=== PATIENT | male | born 1930 | race Caucasian/White ===

== ENCOUNTER 2017-01-14 12:19 | Inpatient (IN) ==
[2017-01-14 13:20] LABS: Basophils # 0.1 10*3/uL (0.0-0.2); Basophils % 0.9 % (0.0-0.8); Eosinophils # 0.1 10*3/uL (0.0-0.87); Eosinophils % 0.4 % (0.00-10.9); Hematocrit 41.8 VOL% (42.0-52.0); Hemoglobin 13.4 GM/DL (14.0-18.0); Immature Granulocytes % 0.4 %; Immature Granulocytes Absolute 0.06 #; Lymphocytes % 6.8 % (21.2-54.2); Mean Corpuscular HGB Conc 32.1 GM/DL (32-36); Mean Corpuscular Hemoglobin 30 PG (27-34); Mean Corpuscular Volume 94.1 FL (87-102); Mean Platelet Volume 9.7 FL (9.6-12.0); Monocytes # 1.1 10*3/uL (0.11-0.8); Neutrophils # 12.7 10*3/uL (1.4-7.4); Neutrophils % 84.5 % (38.7-73.9); Red Blood Count 4.44 MC/CUMM (3.8-5.5); Red Cell Distribution Width 15.2 % (9.3-17.3)
--- NOTE | 2017-01-14 13:25 | XRay Report ---
Referring Physician: Raymundo Richter Exam: XR chest 1V portable Date: January 14, 2017 at 1:10 PM Reason: Altered mental status Comparison: None Findings: The cardiac silhouette is normal in size, but the thoracic aorta is tortuous. No focal consolidation, pneumothorax or pleural effusion is identified. However, the lungs are hyperexpanded, which can be seen in COPD. No acute osseous process is identified. Impression: No acute pulmonary process is identified. However, the lungs are hyperexpanded, which can be seen in COPD. PROCEDURE INTERPRETED AT [facility] DEPARTMENT OF RADIOLOGY Final Report Signed by: Dr. Margo Collado
[2017-01-14 13:31] LABS: Platelet Count 1340 T/CUMM (130-400)
[2017-01-14 13:38] LABS: INR 1.1; PT Patient Result 11.3 SECS
[2017-01-14 13:45] LABS: Ammonia < 10 UMOL/L (11-32)
[2017-01-14 13:46] LABS: Alanine Aminotransferase 12 U/L (16-61); Albumin 3.1 G/DL (3.4-5.0); Alkaline Phosphatase 109 U/L (45-117); Aspartate Amino Transferase 11 U/L (0-37); Blood Urea Nitrogen 24 MG/DL (7-18); Glucose 74 MG/DL (74-106); Magnesium 2.2 MG/DL (1.8-2.4); Osmolality,Calculated 285.1 MOS/KG (273-304); Potassium 4.5 MMOL/L (3.5-5.1); Sodium 142 MMOL/L (136-145); Thyroid Stimulating Hormone 0.814 uIU/ml (0.358-3.74); Total Protein 7.5 G/DL (6.4-8.3); Troponin I Only < 0.015 NG/ML (0.00-0.045)
[2017-01-14] MEDS ORDERED: SODIUM CHLORIDE 0.9% 1,000 ML IV STA (14:03)
[2017-01-14] MEDS ORDERED: VANCOMYCIN INJ 1,000 MG in SODIUM CHLORIDE 0.9% 250 ML IV STA (14:06)
[2017-01-14] MEDS ORDERED: methylPREDNISolone SOD SUC 125 MG/2 ML VIAL IV STA (14:13)
[2017-01-14] MEDS ORDERED: ALBUTEROL/IPRATROPIUM 3 ML NEB RESP TX STA (14:13)
[2017-01-14] MEDS ORDERED: methylPREDNISolone SOD SUC 125 MG/2 ML VIAL ONE (14:24)
--- NOTE | 2017-01-14 14:27 | Emergency Department Note ---
Harley Lynn Mantricia, am scribing for, and in the presence of, Raymundo Richter MD 14:03. Rober Lynn Charles R, MD, personally performed the services described in this documentation, ascribed by Reggie Souza in my presence, and it is both accurate and complete [id number] . Arrival - Arrival Chief Complaint: Extremity Problem Stated Complaint: Not eating-ulcer on leg draining ED Nursing Triage Note: Decreased PO intake and ulcers to bilat legs onset x years Mode of Arrival: Wheelchair Limitations: No Limitations Source: Significant other Time Seen by Provider: 01/14/17 13:30 - History of Present Illness HPI Narrative: Pt is an 86 y/o white male carried to ED by family with c/o ulcers on both lower extremities and decreased PO intake that onset years ago. Family states that pt was once taken to [facility] in [place], [place] for his ulcers and they gave him no medications and just told him to elevate his leg. The ulcers have worsened and pt is now very weak. Family reports that pt thinks he is dying. He has not been able to drink and eat because he has been experiencing severe diarrhea. Pt is currently on no medications; however, he is very ill. Pt currently lives by himself. Family denies vomiting. No other complaints were reported to ED. Onset (ago): year(s) Consistency: constant Severity: moderate Allergies/Adverse Reactions: Allergies Allergy/AdvReac Type Severity Reaction Status Date / Time No Known Allergies Allergy Unverified 01/14/17 12:30 Home Medications: Home Medications Medication Instructions Recorded Confirmed Type No Known Home Medications [No 01/14/17 01/14/17 History Known Home Medications] Review of System - Review of System 12 point system: reviewed and no additional remarkable complaints except as stated - Review of System Constitutional: Absent: chills, diaphoresis, fever Eyes: Absent: discharge, pain, redness Head/Ears/Nose/Throat: Absent: earache, epistaxis Respiratory: Absent: cough, respiratory distress, wheezing Cardiovascular: Absent: chest pain, palpitations Gastrointestinal: Present: diarrhea. Absent: abdominal pain, nausea, vomiting Genitourinary male: Absent: urgency, dysuria Musculoskeletal: Present: other (ulcer on LE bilat). Absent: arm pain, back pain, leg pain, neck pain Skin: Absent: rash, lesions Neurological: Absent: headache, weakness Medical,Surgical,& Family Hx - Medical History Neurology: No history of: Multiple Sclerosis - Social History Smoking Status: Never smoker Frequency of Alcohol Use: None Type of Drug Use: None Exam Vital Signs: Vital Signs Temperature 98.3 F 01/14/17 13:05 Pulse Rate 97 H 01/14/17 15:15 Respiratory Rate 18 01/14/17 13:30 Blood Pressure 132/68 01/14/17 15:15 O2 Sat by Pulse Oximetry 99 01/14/17 14:30 - General General appearance: alert, in no apparent distress, other (weak; malnourished) - Head Head exam: Present: atraumatic, normocephalic, normal inspection - Eye Eye exam: Present: normal appearance, PERRL, EOMI, other (sunken orbits) - ENT ENT exam: Present: normal exam, normal oropharynx, mucous membranes moist, TM's normal bilaterally, normal external ear exam - Neck Neck exam: Present: normal inspection, full ROM, trachea midline. Absent: tenderness - Chest Chest inspection: Present: normal inspection, symmetric chest wall rise. Absent : tenderness - Respiratory Respiratory exam: Present: normal lung sounds bilaterally - Cardiovascular Cardiovascular exam: Present: regular rate, normal rhythm, normal heart sounds - Abdominal Exam Abdominal exam: Present: soft, normal bowel sounds, hernia (reproducible right) . Absent: distention, tenderness, guarding, rebound - Extremities Exam Extremities exam: Present: normal capillary refill, other (jm stasis ulcer bilat LE; +1 LE edema). Absent: tenderness - Back Exam Back exam: Present: normal inspection, full ROM. Absent: tenderness - Neurological Exam Neurological exam: Present: alert, oriented X3, CN II-XII intact, reflexes normal - Psychiatric Psychiatric exam: Present: normal affect, normal mood - Skin Skin exam: Present: warm, dry, intact, other (poor skin turgor) Course - Consultations Time: 14:23 Results - Labs CBC & BMP: 01/14/17 12:48 01/14/17 12:48 Lab Results: I have reviewed the patients labs Labs: Laboratory Tests 01/14/17 01/14/17 12:48 12:48 WBC 15.0 H Hgb 13.4 L Hct 41.8 L Plt Count 1340 H* Neut % (Auto) 84.5 H Lymph % (Auto) 6.8 L Baso % (Auto) 0.9 H Neut # (Auto) 12.7 H Lymph # (Auto) 1.0 L [place] # (Auto) 1.1 H Anion Gap 15.5 H BUN 24 H BUN/Creatinine Ratio 30.00 H ALT 12 L Ammonia < 10 L Albumin 3.1 L Globulin 4.4 H Albumin/Globulin Ratio 0.7 L - Diagnostic Findings Procedure: Chest x-ray: report reviewed by me (No acute pulmonary process identified. However, the lungs are hyperexpanded, which can be seen in COPD. ) Disposition Clinical Impression: Leukocytosis, Lower extremity edema, Lower extremity edema, Debility, Anorexia , Thrombocytosis, Failure to thrive, Cellulitis of lower extremity, Venous stasis ulcer, Weight loss, Unsteady gait, Malnutrition, COPD (chronic obstructive pulmonary disease) Case discussed with: patient, patient's family Disposition: Still a Patient Condition: Stable Time of Disposition: 14:26
[2017-01-14] MEDS ORDERED: VANCOMYCIN 1,000 MG VIAL ONE (14:28)
[2017-01-14 14:34] LABS: Sedimentation Rate-Westergren 20 MM/HR (0-20)
--- NOTE | 2017-01-14 14:50 | Ultrasound Report ---
Referring physician: Raymundo Richter Exam: Bilateral lower extremity venous ultrasound Date: January 14, 2017 Comparison: None Reason: Lower extremity swelling Technique: Duplex scan of the bilateral lower extremity veins was performed using B-Mode/grayscale imaging and Doppler spectral analysis and color flow. Ultrasound images were captured and stored. Findings: There is no evidence of thrombus within the left or right common femoral veins, saphenous veins, superficial femoral veins or popliteal veins. Normal compression and augmentation are present throughout. Normal color flow and spectral analysis are observed. Impression: No evidence of deep venous thrombosis within either lower extremity. PROCEDURE INTERPRETED AT [facility] DEPARTMENT OF RADIOLOGY Final Report Signed by: Dr. Margo Collado
[2017-01-14] MEDS ORDERED: MORPHINE 2 MG/1 ML SYRINGE IV STA (14:59)
[2017-01-14] MEDS ORDERED: ONDANSETRON 4 MG/2 ML VIAL ONE (15:00)
[2017-01-14] MEDS ORDERED: ONDANSETRON 4 MG/2 ML VIAL IV STA (15:00)
[2017-01-14] MEDS ORDERED: MORPHINE 2 MG/1 ML SYRINGE ONE (15:01)
[2017-01-14] MEDS ORDERED: ACETAMINOPHEN 325 MG TABLET PO PRN (16:01)
--- NOTE | 2017-01-14 16:16 | Hospitalist History & Physical ---
<Ramin Woodson - Last Filed: 01/14/17 17:21> History of Present Illness History of present illness: Mr. Reeder is a 86 year old male with an unclear past medical history who presents to the ED for further evaluation of debilitation and cellulitis of the lower extremities. On exam, the patient continuously states that he is going to or he wants to and was unwilling to answer many of the questions presented to him. However, the patient's ex- is at the bedside and assisted with most of the history. The patient apparently lives by himself and has not been eating for the last 3-4 weeks. Patient states that food and the boost that he drinks his passes right through him so he does not want to eat. His states that she brings him food 3-4 times a day, but he never eats. Patient does not admit to any pain, however the ex- states that he has chronic low back pain which compounds his desire to . Patient does not regularly see a doctor and does not currently take any medications. Lab results on admission reveal WBC 15 platelet count 1340. After discussion with Dr. Richter and Dr. Padgett, it is been agreed that the patient will be admitted to hospital medicine service for further evaluation and treatment. Home Medications Medication Instructions Recorded Confirmed Type Aspirin 1 tablet PO DAILY 01/14/17 01/14/17 History Allergies Allergy/AdvReac Type Severity Reaction Status Date / Time No Known Allergies Allergy Unverified 01/14/17 12:30 - EENT Eyes: Absent: blurry vision, loss of vision Exam - Constitutional Vitals: Period Temp Pulse Resp BP Sys/Fitzpatrick Pulse Ox Last 24 Hr 98.3 F-98.3 F 78-99 13-20 131-165/68-91 96-100 - Back Exam Back exam: Present: normal inspection. Absent: CVA tenderness (L), CVA tenderness (R) - Skin Skin exam: Present: other Results - Labs CBC & BMP: 01/14/17 12:48 01/14/17 12:48 <Micheline Padgett - Last Filed: 01/14/17 20:23> Assessment and Plan (1) Cellulitis of lower extremity Status: Acute Assessment and plan: consult dr Jung for wound debridement, vancomycin IV Current Visit: Yes (2) Thrombocythemia Status: Acute Assessment and plan: consult Dr Larson Current Visit: Yes (3) Venous stasis ulcer Status: Acute Assessment and plan: Consult Dr. Jung look clean Current Visit: Yes (4) Weight loss Status: Acute Assessment and plan: ns and cardiac diet Current Visit: Yes (5) Malnutrition Status: Acute Current Visit: Yes (6) Chronic obstructive pulmonary disease Status: Acute Assessment and plan: chronic and stable Current Visit: Yes (7) Urinary frequency Status: Acute Assessment and plan: ua Current Visit: Yes History of Present Illness Chief complaint: weakness History of present illness: Mr. Reeder is a 86 year old male carried to ED by ex- who I cared for her family in the past. She reports he is not eating because his food runs through him. I has bilateral LE deep ulcers with surrounding cellulitis. Patient told me he wants to and asked me to put him to sleep. I told him I cannot do that. I have notified Dr. Jung as he may need debridement. He also has a right reducible hernia. Patient denies nausea and vomiting but reports everything runs through but denies diarrhea. Urinating alot Medical,Surgical,& Family Hx - Medical History Neurology: History of: Parkinson's Disease No history of: Multiple Sclerosis Other: History of: Miscellaneous Medical Problems (chronic LE ulcers ) - Surgical History Additional Surgical History: none - Family History Family History: Reports;: Family Diabetes - Social History Smoking Status: Never smoker Frequency of Alcohol Use: None Type of Drug Use: None Marital Status: Single Lives With:: Alone Functional capacity: independent ambulation - Constitutional Constitutional: Present: weakness, weight loss. Absent: fever(s), headache(s) - Cardiovascular Cardiovascular: Present: lightheadedness - Respiratory Respiratory: Absent: dyspnea, dyspnea on exertion - Gastrointestinal Gastrointestinal: Absent: nausea, vomiting - Genitourinary Genitourinary: Present: difficulty urinating, urinary frequency. Absent: dysuria - Neurological Neurological: Present: dizziness, frequent falls - Psychiatric Psychiatric: Present: depression. Absent: anxiety - Endocrine Endocrine: Present: fatigue. Absent: heat intolerance - Hematologic/Lymphatic Hematologic/Lymphatic: Present: easy bleeding, easy bruising Exam - Constitutional Vitals: Period Temp Pulse Resp BP Sys/Fitzpatrick Pulse Ox Last 24 Hr 98.3 F-98.3 F 78-97 18-20 132-165/68-91 97-100 General appearance: no acute distress, under weight - Head Head exam: Present: normal inspection, normocephalic - Eye Eye exam: Present: EOMI. Absent: scleral icterus Pupils: Present: MARTINA, normal accommodation - ENT ENT exam: Present: normal exam, normal external ear exam - Neck Neck exam: Absent: lymphadenopathy, thyromegaly - Respiratory Respiratory exam: Present: clear to auscultation bilaterally. Absent: rales, wheezes - Cardiovascular Cardiovascular exam: Present: regular rate and rhythm. Absent: systolic murmur - GI/Abdominal GI/Abdominal exam: Present: normal bowel sounds, soft, other (right inguinal hernia ). Absent: tenderness - Extremities Exam Extremities exam: Present: normal inspection, normal capillary refill - Neurological Exam Neurological exam: Present: alert, oriented X3, CN II-XII intact, reflexes normal. Absent: motor sensory deficit - Psychiatric Psychiatric exam: Present: depressed, flat affect - Skin Skin exam: Present: dry, erythema, other (wounds bilateral LE wound ) Results - Labs CBC & BMP: 01/14/17 12:48 01/14/17 12:48 Lab Results: I have reviewed the past 24 hour labs - Diagnostic Findings Procedure: Chest x-ray: report reviewed by me (copd ), Ultrasound: report reviewed by me (no dvt )
[2017-01-14 16:34] LABS: Apearance,Urine CLEAR (Clear); Bacteria,Urine Occasional /HPF (Few); Bilirubin,Urine Negative (Negative); Blood, Urine Negative (Negative); Glucose,Urine (UA) Negative (Negative); Ketones,Urine 80 mg/dL (Negative); Mucus,Urine Occasional /LPF (Occasional); Nitrite,Urine Negative (Negative); Protein,Urine Negative; RBC,Urine <1 /HPF (0-4); Squamous Epithelial Cell,Urine Occasional /HPF (0-10); Urine Color Yellow (Yellow); Urine Specific Gravity 1.014 (1.001-1.035); Urine Urobilinogen < 2.0 EU/DL (0.2-1.0); WBC,Urine 3 /HPF (0-6)
[2017-01-14 17:18] LABS: Free T4 (Free Thyroxine) 1.24 NG/DL (0.76-1.46); Thyroid Stimulating Hormone 0.806 uIU/ml (0.358-3.74)
--- NOTE | 2017-01-14 17:58 | General Surgery Consult Note ---
Assessment and Plan (1) Venous stasis ulcer Status: Acute Assessment and plan: The patient will be treated with local wound care, elevation of the legs, and antibiotics. He may need debridement of his ulcers but I would like to try local wound care for the first few days. He will need to have a ultrasound done with reflux studies on the veins at some point in time. Current Visit: Yes (2) Inguinal hernia Status: Acute Assessment and plan: This appears asymptomatic so we will just watch this for now. Current Visit: Yes History of Present Illness Chief complaint: Bilateral lower extremity pain History of present illness: Mr. Reeder is a 86 year old male who presents to the ER for redness and pain in bilateral lower extremities. He denies any history of blood clots or venous insufficiency but does state that he has had skin changes in his ankles for many years consistent with venous stasis disease. The patient presented to the ER today also complaining of right groin pain and a bulge and I was asked to see him for his inguinal hernia as well. No fevers. He has a severe thrombocytosis. White blood cell count is elevated at 15 to. He is afebrile. Home Medications Medication Instructions Recorded Confirmed Type No Known Home Medications [No 01/14/17 01/14/17 History Known Home Medications] Allergies Allergy/AdvReac Type Severity Reaction Status Date / Time No Known Allergies Allergy Unverified 01/14/17 12:30 Medical,Surgical,& Family Hx - Medical History Neurology: History of: Parkinson's Disease No history of: Multiple Sclerosis Other: History of: Miscellaneous Medical Problems (chronic LE ulcers ) - Family History Family History: Reports;: Family Diabetes - Social History Smoking Status: Never smoker Frequency of Alcohol Use: None Type of Drug Use: None - Constitutional Constitutional: Present: as per HPI - EENT Nose, mouth and throat: Present: as per HPI - Cardiovascular Cardiovascular: Present: as per HPI - Respiratory Respiratory: Present: as per HPI - Gastrointestinal Gastrointestinal: Present: as per HPI - Genitourinary Genitourinary: Present: as per HPI - Musculoskeletal Musculoskeletal: Present: as per HPI - Neurological Neurological: Present: as per HPI - Endocrine Endocrine: Present: as per HPI Hematologic/Lymphatic: Present: as per HPI Exam - Constitutional Vitals: Period Temp Pulse Resp BP Sys/Fitzpatrick Pulse Ox Last 24 Hr 91-99 18-20 131-139/68-75 96-96 General appearance: normal weight, no acute distress - Head Head exam: Present: normal inspection, normocephalic - Eye Eye exam: Present: EOMI Pupils: Present: MARTINA - ENT ENT exam: Present: normal exam Mouth exam: Present: normal external inspection, normal voice - Neck Neck exam: Present: normal inspection, trachea midline - Respiratory Respiratory exam: Present: clear to auscultation bilaterally. Absent: accessory muscle use, chest wall tenderness - Cardiovascular Cardiovascular exam: Present: RRR. Absent: systolic murmur, tachycardia - GI/Abdominal GI/Abdominal exam: Present: soft, other (There is a reducible right inguinal hernia present. There are no skin changes.). Absent: tenderness, rebound - Extremities Exam Extremities exam: Present: normal inspection - Back Exam Back exam: Present: normal inspection - Neurological Exam Neurological exam: Present: alert, oriented X3 Speech: Present: normal - Skin Skin exam: Present: normal color, warm Results - Labs CBC & BMP: 01/14/17 12:48 01/14/17 12:48 - Diagnostic Findings Procedure: Ultrasound: image reviewed by me, report reviewed by me (No DVTs)
[2017-01-14] MEDS: SODIUM CHLORIDE 0.9% 1,000 ML IV SCH (21:40)
[2017-01-14] MEDS: ENOXAPARIN 40 MG/0.4 ML SYRINGE SUBCUT SCH (21:45)
[2017-01-14] MEDS: PANTOPRAZOLE 40 MG TABLET PO SCH (21:45)
[2017-01-15 06:35] LABS: Calcium 7.6 MG/DL (8.5-10.1); Osmolality,Calculated 289.8 MOS/KG (273-304)
[2017-01-15 06:47] LABS: Basophils % 0.2 % (0.0-0.8); Hematocrit 33.3 VOL% (42.0-52.0); Hemoglobin 10.8 GM/DL (14.0-18.0); Immature Granulocytes % 1.5 %; Immature Granulocytes Absolute 0.17 #; Lymphocytes # 0.8 10*3/uL (1.4-4.0); Lymphocytes % 6.7 % (21.2-54.2); Mean Corpuscular HGB Conc 32.4 GM/DL (32-36); Mean Corpuscular Hemoglobin 30 PG (27-34); Mean Corpuscular Volume 93.8 FL (87-102); Mean Platelet Volume 9.8 FL (9.6-12.0); Monocytes # 0.3 10*3/uL (0.11-0.8); Monocytes % 2.7 % (1.7-12.7); Neutrophils # 10.1 10*3/uL (1.4-7.4); Neutrophils % 88.9 % (38.7-73.9); Red Blood Count 3.55 MC/CUMM (3.8-5.5); Red Cell Distribution Width 15.1 % (9.3-17.3); White Blood Count 11.4 T/CUMM (4-12)
[2017-01-15 07:22] LABS: Hypochromasia 2+; Microcytosis 1+; Platelet Count 1208 T/CUMM (130-400); Platelet Estimate Increased
--- NOTE | 2017-01-15 08:51 | EKG Report ---
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
[2017-01-15] MEDS ORDERED: LACTATED RINGERS 1,000 ML IV SCH (09:00)
--- NOTE | 2017-01-15 11:27 | Physician Query Form ---
CLICK EDIT DOCUMENT TO SELECT QUERY ANSWER --> OK --> SIGN Karie Lutz RN, CCDS Certified Clinical Manager [employer] W) [phone] (f) [phone] [email or web address] PROVIDERS: Make your selection(s) from the choices in EACH section by typing an "x" and enter comments in the comment section. Please use your independent medical judgment in providing your response. This request does not imply that any particular answer is desired or expected. CLINICAL INDICATORS: (Providers should not edit this section) The medical record indicates that the patient was admitted with bilateral venous stasis ulcers of lower legs: Based on the above, could you clarify the appropriate diagnosis, if significant , that supports the above abnormalities and additional evaluation, monitoring, and/or treatment rendered: Left leg ulcer depth: ( ) Fat Layer exposed ( ) Necrosis of bone ( ) Necrosis of muscle ( ) Skin breakdown only ( ) Other Right leg ulcer depth: ( ) Fat Layer exposed ( ) Necrosis of bone ( ) Necrosis of muscle ( ) Skin breakdown only ( ) Other ( ) Other, please specify: (x) Clinically unable to determine COMMENTS: PLEASE ALSO DOCUMENT RESPONSE IN PROGRESS NOTES AND/OR DISCHARGE SUMMARY Use of terms such as suspected, likely, or probable (associated with a specific diagnosis that is being evaluated, monitored, or treated as if it exists) are acceptable and can be restated in the discharge summary if not ruled out. MTDD
[2017-01-15 12:10] LABS: Apearance,Urine Slightly Hazy (Clear); Bacteria,Urine Occasional /HPF (Few); Bilirubin,Urine Negative (Negative); Blood, Urine Large mg/dL (Negative); Glucose,Urine (UA) Negative (Negative); Hyaline Casts,Urine 1 /LPF (0-3); Ketones,Urine 20 mg/dL (Negative); Mucus,Urine Occasional /LPF (Occasional); Nitrite,Urine Negative (Negative); Protein,Urine Negative; RBC,Urine 246 /HPF (0-4); Squamous Epithelial Cell,Urine Occasional /HPF (0-10); Urine Color Yellow (Yellow); Urine Specific Gravity 1.016 (1.001-1.035); Urine Urobilinogen < 2.0 EU/DL (0.2-1.0); WBC,Urine 5 /HPF (0-6)
[2017-01-15] MEDS ORDERED: BUPIVACAINE MPF 0.25% /EPI 30 ML VIAL ONE (12:15)
--- NOTE | 2017-01-15 12:15 | General Surgery Progress Note ---
Assessment and Plan (1) Venous stasis ulcer Status: Acute Assessment and plan: We will plan for debridement in the OR today and dressing placement. This was discussed with the family and agreed upon. Current Visit: Yes (2) Inguinal hernia Status: Acute Assessment and plan: This appears asymptomatic so we will just watch this for now. Current Visit: Yes Subjective Patient reports: Present: no new complaints, still having pain, pain is less, afebrile Exam - Constitutional Vitals: Period Temp Pulse Resp BP Sys/Fitzpatrick Pulse Ox Last 24 Hr 97.8 F-98.3 F 78-99 13-20 126-165/68-91 95-100 General appearance: no acute distress, under weight - Head Head exam: Present: normal inspection, normocephalic - Eye Eye exam: Present: EOMI Pupils: Present: MARTINA - ENT ENT exam: Present: normal exam Mouth exam: Present: normal external inspection, normal voice - Neck Neck exam: Present: normal inspection, trachea midline - Respiratory Respiratory exam: Present: clear to auscultation bilaterally. Absent: accessory muscle use, chest wall tenderness - Cardiovascular Cardiovascular exam: Present: RRR. Absent: systolic murmur, tachycardia - GI/Abdominal GI/Abdominal exam: Present: soft, other (Right inguinal hernia is nontender and reduced). Absent: tenderness, rebound - Extremities Exam Extremities exam: Present: other (Venous stasis ulcers worse on the right leg. There is surrounding cellulitis. There is some sloughing necrotic tissue on the ulcers.) - Back Exam Back exam: Present: normal inspection - Neurological Exam Neurological exam: Present: alert, oriented X3 Speech: Present: normal - Skin Skin exam: Present: normal color, warm Results - Labs CBC & BMP: 01/15/17 04:00 01/14/17 12:48
--- NOTE | 2017-01-15 12:16 | Hematology Consult ---
Assessment and Plan (1) Thrombocythemia Status: Acute Assessment and plan: I think this is reactive. I will most likely improve if his chronic ulcerations heal. I encouraged him to take daily aspirin indefinitely. There is nothing further to offer from hematology standpoint. Current Visit: Yes (2) Debility Status: Acute Current Visit: Yes (3) Loss of appetite Status: Acute Current Visit: Yes (4) Failure to thrive Status: Acute Current Visit: Yes (5) Cellulitis of lower extremity Status: Acute Current Visit: Yes (6) Venous stasis ulcer Status: Acute Current Visit: Yes (7) Malnutrition Status: Acute Current Visit: Yes History of Present Illness - Consult Narrative History of present illness: Mr. Reeder is a 86 year old male with chronic lower extremity ulcers who was admitted yesterday for evaluation and treatment of these. He also appears to have severe failure to thrive and does not get out of bed much based on history from family member at bedside. I was consulted to evaluate his elevated platelet count. I suspect this is most likely reactive in nature given his lower extremity ulcerations. He may have some underlying primary thrombocytosis but I do not see him being a candidate or have any benefit from aggressive cytoreductive therapy with Hydrea. He already takes a baby aspirin every day at home which is all I would recommend anyway. There is nothing further to offer from a hematology standpoint. I do not think this is a malignant process causing his thrombocytosis. He has no history of DVT, CVA, myocardial infarction, or other thrombosis. CC: Abdi Quarles MD - Home Medications and Allergies Home Medications: Home Medications Medication Instructions Recorded Confirmed Type Aspirin 1 tablet PO DAILY 01/14/17 01/14/17 History Allergies/Adverse Reactions: Allergies Allergy/AdvReac Type Severity Reaction Status Date / Time No Known Allergies Allergy Unverified 01/14/17 12:30 Medical,Surgical,& Family Hx - Medical History Psychological: History of: Depression Neurology: History of: Parkinson's Disease No history of: Multiple Sclerosis Other: History of: Miscellaneous Medical Problems (chronic LE ulcers ) - Family History Family History: Reports;: Family Diabetes - Social History Smoking Status: Never smoker Frequency of Alcohol Use: None Type of Drug Use: None 12 point system: reviewed and no additional remarkable complaints except as stated - Constitutional Constitutional: Present: fatigue Exam - Constitutional Vitals: Period Temp Pulse Resp BP Sys/Fitzpatrick Pulse Ox Last 24 Hr 97.8 F-98.6 F 75-99 13-20 121-165/67-91 90-100 General appearance: no acute distress, cachectic - Head Head Exam: Present: normocephalic, atraumatic - Eye Eye Exam: Present: EOMI Pupils: Present: PERRL - ENT ENT exam: Present: normal exam, normal oropharynx - Neck Neck exam: Absent: lymphadenopathy, thyromegaly - Respiratory Respiratory exam: Present: CTAB. Absent: wheezes - Cardiovascular Cardiovascular exam: Present: RRR. Absent: JVD, systolic murmur - GI/Abdominal GI/Abdominal exam: Present: soft. Absent: ascites, distended, mass - Neurological Exam Neurological exam: Present: alert, oriented X3 - Psychiatric Psychiatric exam: Present: normal affect, normal mood - Skin Skin exam: Present: warm, dry Results - Labs CBC & BMP: 01/15/17 04:00 01/15/17 04:00 Lab Results: I have reviewed the past 24 hour labs
[2017-01-15] MEDS ORDERED: LIDOCAINE 2% 5 ML VIAL ONE (12:22)
[2017-01-15] MEDS ORDERED: ONDANSETRON 4 MG/2 ML VIAL ONE ×2 (12:22→13:22)
[2017-01-15] MEDS ORDERED: PROPOFOL 200 MG/20 ML VIAL IV ONE (12:22)
[2017-01-15] MEDS ORDERED: HYDROmorphone 2 MG/1 ML VIAL ONE (13:22)
[2017-01-15] MEDS ORDERED: ONDANSETRON 4 MG/2 ML VIAL IV PRN (13:23)
[2017-01-15] MEDS ORDERED: MIDAZOLAM 2 MG/2 ML VIAL ONE (13:24)
[2017-01-15] MEDS ORDERED: fentaNYL 100 MCG/2 ML VIAL ONE (13:24)
[2017-01-15] MEDS: HYDROmorphone 2 MG/1 ML VIAL IV PRN ×2 (13:25→13:30)
--- NOTE | 2017-01-15 14:23 | Anesthesia Post-Op ---
Anesthesia Post OP - Post Ansesthetic Evaluation Patient seen in post op: Yes Resp: within normal limits CV: within normal limits Mental: within normal limits Temp: within normal limits [id number]-It-[id number]: within normal limits Nausea and Vomiting: within normal limits Pain: within normal limits
[2017-01-15] MEDS ORDERED: VANCOMYCIN INJ 1,000 MG in SODIUM CHLORIDE 0.9% 250 ML IV SCH (14:30)
--- NOTE | 2017-01-15 15:09 | Hospitalist Progress Note ---
Assessment and Plan (1) Chronic diarrhea Status: Acute Assessment and plan: From the story that is given to this is mostly associated with eating. Patient definitely has more absorption. I am concerned about possibility of celiac sprue. Patient will have drawn IgA levels as well as tissue transglutaminase antibodies. These are suggestive of celiac sprue patient should have consulted to gastroenterology for upper GI scope small bowel biopsy to evaluate for this disease. I believe if this is the reason for his manic diarrhea avoidance of gluten will help him immensely. Current Visit: Yes (2) Weight loss, abnormal Status: Acute Assessment and plan: As above Current Visit: Yes (3) Onychomycosis Status: Acute Assessment and plan: Try to get him podiatry services but there is none in the hospital. I have talked to his daughter that he will need to see a base manager as an outpatient. Follow has been going on for a long time. Current Visit: Yes (4) Hypertrophic toenail Status: Acute Assessment and plan: As above Current Visit: Yes (5) Leukocytosis Status: Acute Assessment and plan: This is complicating cellulitis of the lower extremities. Patient is going for surgical debridement of these wounds. Continue vancomycin and levofloxacin. Vancomycin should be increased to 1 g every 12 hours and we will give levofloxacin 750 mg IV every 24 hours. Will order pharmacy for consultation on pharmacokinetics of vancomycin. Current Visit: Yes (6) Thrombocythemia Status: Acute Assessment and plan: This could be secondary to chronic infections in the leg and also patient's general condition. Current Visit: Yes (7) Cellulitis of lower extremity Status: Acute Assessment and plan: Patient is going to have debridement of lower extremities ulcers. Evaluate for possibility of osteomyelitis. Will continue antibiotics as ordered Current Visit: Yes Hospitalist: Subjective Interval history: Patient has been seen interviewed and examined and chart has been. gentleman was admitted yesterday with significant debility and failure to thrive at home. Patient has bilateral leg wounds is greatly hypertrophied toenails. I am informed by his daughter at the bedside that he does not have any primary care physician. Done [employer] support system he does have at home. Reported also been having diarrhea by stating that the "food that he eats and the boost that he drinks" just passes through him." He has severe protein calorie deficiency wonder about possibility of malabsorption with his gentleman. Celiac sprue comes to my too. I will order IgA titer as well as anti-tissue transglutaminase levels. If these are suggestive, this gentleman should be referred to GI for upper endoscopy with small bowel biopsy to evaluate for celiac disease. Diarrhea has been going on for a long time he has lost a lot of weight and they seem to be living alone with very little help from the border hygiene I notice on him. He has no primary care physician on this concern of celiac disease may not have been looked at closely. That is the case he will have to avoid gluten diet Exam - Constitutional Vitals: Period Temp Pulse Resp BP Sys/Fitzpatrick Pulse Ox Last 24 Hr 97.8 F-98.6 F 16-99 12-20 121-174/62-89 90-100 General appearance: under weight - Head Head exam: Present: normocephalic, atraumatic - Eye Eye exam: Present: EOMI Pupils: Present: MARTINA - ENT ENT exam: Present: normal exam - Neck Neck exam: Present: normal inspection, other (Midline trachea no thyromegaly no lymphadenopathy) - Respiratory Respiratory exam: Present: clear to auscultation bilaterally - Cardiovascular Cardiovascular exam: Present: regular rate and rhythm - GI/Abdominal GI/Abdominal exam: Present: normal bowel sounds - Extremities Exam Extremities exam: Present: full ROM, other (Generalized weakness with significant muscle wasting hypertrophy of toenail with onychomycosis) - Neurological Exam Neurological exam: Present: alert, oriented X3, CN II-XII intact - Psychiatric Psychiatric exam: Present: normal affect, normal mood - Skin Skin exam: Present: normal color, warm, dry Results - Labs CBC & BMP: 01/15/17 04:00 01/15/17 04:00 Lab Results: I have reviewed the past 24 hour labs
--- NOTE | 2017-01-15 15:20 | Case Mgmt Physician Query Form ---
TB Signs and Symptoms Screening ([place]) INSTRUCTIONS: To be completed annually on residents/staff with a significant Tuberculin Skin Test (TST) upon admission/hire or a prior significant TST. To be completed on all staff at hire. Please respond to each listed symptom with an (X) in either the "YES" or "NO" box. Do you currently have any of the following symptoms: YES NO ( ) (x ) A cough If yes, is it: ( ) Productive ( ) Non- productive ( ) ( x) Hemoptysis (spitting up blood) ( ) ( x) Chest pains ( x) ( ) Weight Loss ( ) (x ) Fever ( ) (x ) Night Sweats ( x) ( ) Weakness ( ) (x ) Loss of Appetite ( ) (x ) Difficulty Breathing If you answered YES" to any of the above questions, how long have symptoms been present? Comments: Chronic associated with diarrhea after eating food. I have initiated worked up for celiac disease. Patient is depressed due to chronic illness If you have any questions, please contact me. Thank you, Rehana ELAM P: [phone] F: [phone] E: [email or web address]
[2017-01-15] MEDS ORDERED: TUBERCULIN SKIN TEST 0.1 ML SYRINGE INTRADERM ONE (15:30)
[2017-01-15] MEDS: SODIUM CHLORIDE 0.9% 1,000 ML IV SCH ×2 (15:45→20:57)
[2017-01-15] MEDS: PANTOPRAZOLE 40 MG TABLET PO SCH (15:45)
[2017-01-15] MEDS: LEVOFLOXACIN INJ 750 MG in PREMIX 1 EACH IV SCH (15:46)
[2017-01-15] MEDS: ENOXAPARIN 40 MG/0.4 ML SYRINGE SUBCUT SCH (16:23)
--- NOTE | 2017-01-15 16:53 | Operative Note ---
Date of procedure: 01/15/17 Pre-op diagnosis: Bilateral lower extremity venous stasis ulcers Post-op diagnosis: same Procedure: Preoperative diagnosis Bilateral lower extremity venous stasis ulcers Postoperative diagnosis Same Procedures performed 1. Excisional debridement of right lower extremity medial malleolus venous stasis ulcer measuring 30 cm skin and subcutaneous tissue 2. Excisional debridement of right lower extremity lateral malleolus venous stasis ulcer measuring 6 cm with skin and subcutaneous tissue 3. Excisional debridement of left lower extremity lateral malleolus venous stasis ulcer measuring 6 cm with skin and subcutaneous tissue debrided Findings All 3 debridements were performed on skin and subcutaneous tissue and a curette was used to scrape off necrotic tissue back to healthy bleeding tissue. Nonadhesive Vaseline gauze was used and covered with a compressive dressing to assist with venous drainage of the legs. Complications None apparent Specimen None Anesthesia General LMA Blood loss Minimal Indications Bilateral lower extremity venous stasis ulcer Description of procedure The patient was taken to the operating room and transferred to the operating table in supine position. Pressure points were padded and general anesthesia was administered with LMA. Bilateral lower extremities were prepped with Betadine and draped sterilely. Timeout was called. Excisional debridement was performed first on the right lower extremity medial malleolus venous stasis ulcer which measured 30 cm. Skin and subcutaneous tissue were debrided with a curette back to healthy bleeding tissue. Next, the right lower extremity lateral malleolus venous stasis ulcer was debrided and 6 cm of necrotic skin and subcutaneous tissue was debrided. Lastly, the left lower extremity lateral malleolus venous stasis ulcer was debrided and 6 cm necrotic skin and subcu tissue was debrided back to healthy bleeding tissue. Wounds were irrigated and dressed with a Vaseline gauze and cast padding and Coban compressive dressing. The patient was awakened from anesthesia and transferred to recovery. Postoperative plan Continue wound care and antibiotics Anesthesia: SIRISHA Surgeon / Physician: Aldair Jung Estimated blood loss: minimal Specimens: none sent Condition: stable Disposition: PACU Results - Labs CBC & BMP: 01/15/17 04:00 01/15/17 04:00 Discharge Plan - Discharge Medications No Action Aspirin 1 tablet PO DAILY - Follow Up or Referral - Forms/Instructions
[2017-01-15] MEDS: VANCOMYCIN INJ 1,000 MG in SODIUM CHLORIDE 0.9% 250 ML IV SCH (22:14)
[2017-01-16] MEDS: SODIUM CHLORIDE 0.9% 1,000 ML IV SCH ×3 (00:47→16:08)
[2017-01-16 03:53] LABS: Basophils % 0.3 % (0.0-0.8); Eosinophils # 0.1 10*3/uL (0.0-0.87); Eosinophils % 0.7 % (0.00-10.9); Hematocrit 30.6 VOL% (42.0-52.0); Hemoglobin 9.9 GM/DL (14.0-18.0); Immature Granulocytes % 0.4 %; Immature Granulocytes Absolute 0.05 #; Lymphocytes % 8.2 % (21.2-54.2); Mean Corpuscular HGB Conc 32.4 GM/DL (32-36); Mean Corpuscular Hemoglobin 30 PG (27-34); Mean Corpuscular Volume 92.7 FL (87-102); Mean Platelet Volume 9.9 FL (9.6-12.0); Monocytes # 1.3 10*3/uL (0.11-0.8); Monocytes % 10.3 % (1.7-12.7); Neutrophils # 9.9 10*3/uL (1.4-7.4); Neutrophils % 80.1 % (38.7-73.9); Platelet Count 970 T/CUMM (130-400); Red Cell Distribution Width 15.3 % (9.3-17.3); White Blood Count 12.3 T/CUMM (4-12)
[2017-01-16 04:19] LABS: Calcium 7.7 MG/DL (8.5-10.1); Osmolality,Calculated 289.8 MOS/KG (273-304); Potassium 4.9 MMOL/L (3.5-5.1)
[2017-01-16] MEDS: PANTOPRAZOLE 40 MG TABLET PO SCH (08:14)
[2017-01-16] MEDS: VANCOMYCIN INJ 1,000 MG in SODIUM CHLORIDE 0.9% 250 ML IV SCH ×2 (08:15→20:03)
--- NOTE | 2017-01-16 10:20 | Event Note ---
General Surgery Progress Note Chief complaint The patient is an 86-year-old man admitted with venous stasis ulcers treated with debridement on 01/15/2017 Interval history No events overnight Physical exam The patient still has some cellulitis around his venous stasis ulcers but the wounds themselves look clean Labs Reviewed Imaging None Assessment and plan Continue antibiotics, elevation, and compression dressings on both legs. Dressing changes daily
--- NOTE | 2017-01-16 12:45 | Physician Query Form ---
CLICK EDIT DOCUMENT TO SELECT QUERY ANSWER --> OK --> SIGN Karie Lutz RN, CCDS Certified Clinical Massage Therapy Instructor W) [phone] (f) [phone] [email or web address] PROVIDERS: Make your selection(s) from the choices in EACH section by typing an "x" and enter comments in the comment section. Please use your independent medical judgment in providing your response. This request does not imply that any particular answer is desired or expected. CLINICAL INDICATORS: (Providers should not edit this section) Height: 5' 1" Weight: 99 lb 12.8 oz Supervisor Finishing Room BMI: 18.9 Nutritional supplements: Stroke Belt Sander Operator notes: Other clinical notes: Admitted with bilateral venous stasis, Per dietary "loss of body fat"---"loss of muscle mass"-- on the -"has severe protein calorie deficiency wonder about possibility of malabsorption with this gentleman", AND "lost a lot of weight". (Reported also been having diarrhea by stating that the "food that he eats and the boost that he drinks" just passes through him") Based on the above, which following choice most accurately represents the patient's nutritional status? ( ) Malnutrition ( ) mild ( ) moderate ( ) severe ( ) Protein calorie malnutrition ( ) mild ( ) moderate ( ) severe ( ) Emaciation due to malnutrition ( ) Nutritional marasmus ( ) Cachexia ( ) Underweight ( ) No nutritional deficiency ( ) Other, please specify: ( ) Clinically unable to determine Mild Malnutrition (BMI < 18.5, % Normal Body Weight 85-95%) Moderate Malnutrition (BMI < 17, % Normal Body Weight 75-85%) Severe Malnutrition (BMI < 16, % Normal Body Weight < 75%) Source: [place] COMMENTS: PLEASE ALSO DOCUMENT RESPONSE IN PROGRESS NOTES AND/OR DISCHARGE SUMMARY Use of terms such as suspected, likely, or probable (associated with a specific diagnosis that is being evaluated, monitored, or treated as if it exists) are acceptable and can be restated in the discharge summary if not ruled out. MTDD
--- NOTE | 2017-01-16 15:07 | Hospitalist Progress Note ---
Assessment and Plan (1) Chronic diarrhea Status: Acute Assessment and plan: From the story that is given to this is mostly associated with eating. Patient definitely has more absorption. I am concerned about possibility of celiac sprue. Patient will have drawn IgA levels as well as tissue transglutaminase antibodies. These are suggestive of celiac sprue patient should have consulted to gastroenterology for upper GI scope small bowel biopsy to evaluate for this disease. I believe if this is the reason for his manic diarrhea avoidance of gluten will help him immensely. Current Visit: Yes (2) Weight loss, abnormal Status: Acute Assessment and plan: As above Current Visit: Yes (3) Onychomycosis Status: Acute Assessment and plan: I tried to get him podiatry services but there is none in the hospital. I have talked to his daughter that he will need to see a correctional supply supervisor as an outpatient. Follow has been going on for a long time. Current Visit: Yes (4) Hypertrophic toenail Status: Acute Assessment and plan: As above Current Visit: Yes (5) Leukocytosis Status: Acute Assessment and plan: This is complicating cellulitis of the lower extremities. Patient is going for surgical debridement of these wounds. Continue vancomycin and levofloxacin. Vancomycin should be increased to 1 g every 12 hours and we will give levofloxacin 750 mg IV every 24 hours. Will order pharmacy for consultation on pharmacokinetics of vancomycin. Current Visit: Yes (6) Thrombocythemia Status: Acute Assessment and plan: This could be secondary to chronic infections in the leg and also patient's general condition. Current Visit: Yes (7) Cellulitis of lower extremity Status: Acute Assessment and plan: Patient is going to have debridement of lower extremities ulcers. Evaluate for possibility of osteomyelitis. Will continue antibiotics as ordered Current Visit: Yes Hospitalist: Subjective Interval history: Patient has been seen interviewed and examined and chart has been reviewed. Hospital bilateral leg cellulitis. Patient underwent debridement of the soles yesterday. He also has a history of chronic diarrhea and the waking up for possible celiac disease. She has been accepted at the [facility] but the cannot get in the right now. Surgery is following the can recommend continue antibiotics. Preferably keep him through the weekend Exam - Constitutional Vitals: Period Temp Pulse Resp BP Sys/Fitzpatrick Pulse Ox Last 24 Hr 97.0 F-97.9 F 71-89 18-20 108-149/63-80 95-97 General appearance: under weight - Head Head exam: Present: normal inspection, normocephalic - Eye Eye exam: Present: EOMI Pupils: Present: MARTINA - ENT ENT exam: Present: normal exam - Neck Neck exam: Present: normal inspection - Respiratory Respiratory exam: Present: clear to auscultation bilaterally - Cardiovascular Cardiovascular exam: Present: regular rate and rhythm - GI/Abdominal GI/Abdominal exam: Present: normal bowel sounds, soft - Extremities Exam Extremities exam: Present: normal inspection, full ROM - Neurological Exam Neurological exam: Present: alert, oriented X3, CN II-XII intact - Psychiatric Psychiatric exam: Present: normal affect, normal mood - Skin Skin exam: Present: normal color, warm, dry Results - Labs CBC & BMP: 01/16/17 03:17 01/16/17 03:17 Lab Results: I have reviewed the past 24 hour labs
[2017-01-16] MEDS: ENOXAPARIN 40 MG/0.4 ML SYRINGE SUBCUT SCH (16:09)
[2017-01-16] MEDS: LEVOFLOXACIN INJ 750 MG in PREMIX 1 EACH IV SCH (16:09)
[2017-01-17] MEDS: SODIUM CHLORIDE 0.9% 1,000 ML IV SCH ×3 (03:15→20:23)
[2017-01-17 06:13] LABS: Basophils # 0.1 10*3/uL (0.0-0.2); Basophils % 0.8 % (0.0-0.8); Eosinophils # 0.3 10*3/uL (0.0-0.87); Eosinophils % 2.9 % (0.00-10.9); Hemoglobin 10.3 GM/DL (14.0-18.0); Immature Granulocytes % 0.4 %; Immature Granulocytes Absolute 0.04 #; Lymphocytes # 1.1 10*3/uL (1.4-4.0); Lymphocytes % 11.7 % (21.2-54.2); Mean Corpuscular HGB Conc 32.2 GM/DL (32-36); Mean Corpuscular Hemoglobin 30 PG (27-34); Mean Corpuscular Volume 92.8 FL (87-102); Mean Platelet Volume 10.2 FL (9.6-12.0); Neutrophils # 6.9 10*3/uL (1.4-7.4); Neutrophils % 73.2 % (38.7-73.9); Platelet Count 917 T/CUMM (130-400); Red Blood Count 3.45 MC/CUMM (3.8-5.5); Red Cell Distribution Width 15.4 % (9.3-17.3); White Blood Count 9.5 T/CUMM (4-12)
[2017-01-17 06:51] LABS: Calcium 7.6 MG/DL (8.5-10.1); Osmolality,Calculated 280.1 MOS/KG (273-304); Potassium 4.2 MMOL/L (3.5-5.1)
--- NOTE | 2017-01-17 09:06 | Event Note ---
General Surgery Progress Note Chief complaint The patient is an 86-year-old man admitted with venous stasis ulcers treated with debridement on 01/15/2017 Interval history No events overnight Physical exam The patient still has some cellulitis around his venous stasis ulcers but the wounds themselves look clean Labs Reviewed Imaging None Assessment and plan Continue antibiotics Elevate both lower extremities above the level of the heart I am going to change the patient's antibiotics. His erythema does not seem to be responding to his current therapy but this could also be because his legs are not being elevated yet. I discussed this with the nursing today and they will get pillows to elevate his legs.
[2017-01-17] MEDS: VANCOMYCIN INJ 1,000 MG in SODIUM CHLORIDE 0.9% 250 ML IV SCH (09:08)
[2017-01-17] MEDS: PANTOPRAZOLE 40 MG TABLET PO SCH (09:09)
[2017-01-17] MEDS: CEFTAROLINE 600 MG in SODIUM CHLORIDE 0.9% 100 ML IV SCH ×2 (10:11→21:44)
--- NOTE | 2017-01-17 11:16 | Hospitalist Progress Note ---
Assessment and Plan - Time spent with patient Time spent with patient: Less than 30 minutes (1) Cellulitis of lower extremity Status: Acute Assessment and plan: Appreciate Dr. Jung's assistance. Continuing IV antibiotics and local wound care and elevation. Current Visit: Yes (2) Thrombocythemia Status: Acute Assessment and plan: This is likely reactive in nature and will continue to follow. Current Visit: Yes (3) Weight loss Status: Chronic Assessment and plan: We will attempt to provide protein shakes and nutritional supplements. Current Visit: Yes (4) Chronic obstructive pulmonary disease Status: Chronic Assessment and plan: Currently stable without any evidence of exacerbation. Current Visit: Yes Hospitalist: Subjective Interval history: Chart examined and patient assessed. Discuss with family members in the room. Patient is doing well today but has no appetite and has had little oral intake. Patient denies any nausea, vomiting, diarrhea or constipation. Exam - Constitutional Vitals: Period Temp Pulse Resp BP Sys/Fitzpatrick Pulse Ox Last 24 Hr 97.0 F-98.7 F 70-89 16-20 131-149/74-80 94-98 General appearance: no acute distress - Head Head exam: Present: normocephalic, atraumatic - Eye Eye exam: Present: EOMI Pupils: Present: MARTINA - ENT ENT exam: Present: normal exam - Neck Neck exam: Present: normal inspection - Respiratory Respiratory exam: Present: clear to auscultation bilaterally. Absent: rales, rhonchi, wheezes - Cardiovascular Cardiovascular exam: Present: regular rate and rhythm. Absent: systolic murmur , tachycardia - GI/Abdominal GI/Abdominal exam: Present: normal bowel sounds, soft. Absent: mass, tenderness - Extremities Exam Extremities exam: Present: other (Dressing of lower extremities bilaterally). Absent: calf tenderness - Neurological Exam Neurological exam: Present: alert, oriented X3, CN II-XII intact. Absent: motor sensory deficit - Psychiatric Psychiatric exam: Present: flat affect. Absent: agitated, anxious - Skin Skin exam: Present: warm, dry Results - Labs CBC & BMP: 01/17/17 05:06 01/17/17 05:06 Lab Results: I have reviewed the past 24 hour labs
[2017-01-17] MEDS: ENOXAPARIN 40 MG/0.4 ML SYRINGE SUBCUT SCH (16:53)
[2017-01-18] MEDS: SODIUM CHLORIDE 0.9% 1,000 ML IV SCH ×3 (05:26→22:55)
[2017-01-18] MEDS: ASPIRIN CHEW 81 MG TABLET PO SCH (08:16)
[2017-01-18] MEDS: PANTOPRAZOLE 40 MG TABLET PO SCH (08:16)
--- NOTE | 2017-01-18 09:57 | Event Note ---
He feels a little better. He has less pain. He and his family feel like he has less edema of his lower extremities. His lower extremities are wrapped with compressive type of Covan dressing which I agree with. I did not take this down today. We will continue with compression therapy and antibiotics and wound care.
[2017-01-18] MEDS: CEFTAROLINE 600 MG in SODIUM CHLORIDE 0.9% 100 ML IV SCH ×2 (10:11→21:10)
--- NOTE | 2017-01-18 10:40 | Hospitalist Progress Note ---
Assessment and Plan - Time spent with patient Time spent with patient: Less than 30 minutes (1) Cellulitis of lower extremity Status: Acute Assessment and plan: Appreciate Dr. Jung's assistance. Continuing IV antibiotics and local wound care and elevation. 01/18/17: Continuing IV antibiotics and local wound care and elevation. Appreciate general surgery input. Current Visit: Yes (2) Thrombocythemia Status: Acute Assessment and plan: This is likely reactive in nature and will continue to follow. Current Visit: Yes (3) Weight loss Status: Chronic Assessment and plan: We will attempt to provide protein shakes and nutritional supplements. Current Visit: Yes (4) Chronic obstructive pulmonary disease Status: Chronic Assessment and plan: Currently stable without any evidence of exacerbation. Current Visit: Yes Hospitalist: Subjective Interval history: Patient states he feels better today however he continues to have poor intake and poor appetite. He denies any chest pain or shortness of breath. Exam - Constitutional Vitals: Period Temp Pulse Resp BP Sys/Fitzpatrick Pulse Ox Last 24 Hr 97.8 F-98.4 F 68-82 16-18 130-153/67-80 92-97 General appearance: no acute distress - Head Head exam: Present: normocephalic, atraumatic - Eye Eye exam: Present: EOMI Pupils: Present: MARTINA - ENT ENT exam: Present: normal exam - Neck Neck exam: Present: normal inspection - Respiratory Respiratory exam: Present: clear to auscultation bilaterally. Absent: rales, rhonchi, wheezes - Cardiovascular Cardiovascular exam: Present: regular rate and rhythm - GI/Abdominal GI/Abdominal exam: Present: normal bowel sounds, soft. Absent: mass, rebound - Extremities Exam Extremities exam: Present: other (Dressing to bilateral extremities). Absent: calf tenderness - Neurological Exam Neurological exam: Present: alert, oriented X3, CN II-XII intact. Absent: motor sensory deficit - Psychiatric Psychiatric exam: Present: normal affect, normal mood. Absent: agitated, anxious - Skin Skin exam: Present: warm, dry. Absent: erythema Results - Labs CBC & BMP: 01/17/17 05:06 01/17/17 05:06 Lab Results: I have reviewed the past 24 hour labs
[2017-01-18] MEDS: ENOXAPARIN 40 MG/0.4 ML SYRINGE SUBCUT SCH (17:33)
[2017-01-19 05:59] LABS: Basophils # 0.1 10*3/uL (0.0-0.2); Basophils % 1.2 % (0.0-0.8); Eosinophils # 0.8 10*3/uL (0.0-0.87); Eosinophils % 8.2 % (0.00-10.9); Hematocrit 33.1 VOL% (42.0-52.0); Hemoglobin 10.7 GM/DL (14.0-18.0); Immature Granulocytes % 0.5 %; Immature Granulocytes Absolute 0.05 #; Lymphocytes # 1.4 10*3/uL (1.4-4.0); Lymphocytes % 15.4 % (21.2-54.2); Mean Corpuscular HGB Conc 32.3 GM/DL (32-36); Mean Corpuscular Hemoglobin 30 PG (27-34); Mean Corpuscular Volume 91.7 FL (87-102); Mean Platelet Volume 9.8 FL (9.6-12.0); Monocytes # 0.9 10*3/uL (0.11-0.8); Monocytes % 9.5 % (1.7-12.7); Neutrophils % 65.2 % (38.7-73.9); Platelet Count 911 T/CUMM (130-400); Red Blood Count 3.61 MC/CUMM (3.8-5.5); Red Cell Distribution Width 15.3 % (9.3-17.3); White Blood Count 9.2 T/CUMM (4-12)
[2017-01-19 06:24] LABS: Calcium 7.4 MG/DL (8.5-10.1); Osmolality,Calculated 278.3 MOS/KG (273-304)
[2017-01-19] MEDS: SODIUM CHLORIDE 0.9% 1,000 ML IV SCH ×2 (06:56→16:29)
--- NOTE | 2017-01-19 06:58 | Event Note ---
Subjective The patient is postop day #4 status post debridement of venous stasis wounds to the right lower extremity as well as to fluoroscopy day #3 status post antibiotic change. Again, the patient's legs are elevated upon entry to the room. The patient has no complaints of pain. He has been afebrile. Objective Vital signs stable HEENT head is atraumatic normocephalic. Patient is hard of hearing. Heart: Regular rate and rhythm Lungs: Clear to auscultation bilaterally Abdomen soft and nontender. Bowel sounds present. Extremities: Dressings were taken down. Left lower extremity with lateral ulceration which is clean approximately 3.5 cm in diameter. Minimal surrounding cellulitic change. No malodor or drainage. Dorsalis pedis pulses palpable. Right lower extremity dressings were taken down as well. Wounds are clean with out malodor. There appears to be resolving edema and erythema although it is more significant on the side. Dorsalis pedis pulses are palpable. Blood cultures no growth at 3 days Assessment and plan: The patient is postop day #4 status post debridement of venous stasis ulcers on the right lower extremity. He continues on Teflaro to which he appears to be responding. Changed dressing today, compression dressing reapplied, and encouraged elevation of lower extremities.
[2017-01-19] MEDS: ASPIRIN CHEW 81 MG TABLET PO SCH (08:30)
[2017-01-19] MEDS: PANTOPRAZOLE 40 MG TABLET PO SCH (08:30)
[2017-01-19] MEDS: CEFTAROLINE 600 MG in SODIUM CHLORIDE 0.9% 100 ML IV SCH ×2 (09:29→21:42)
--- NOTE | 2017-01-19 10:14 | Hospitalist Progress Note ---
Assessment and Plan - Time spent with patient Time spent with patient: Less than 30 minutes (1) Cellulitis of lower extremity Status: Acute Assessment and plan: Appreciate Dr. Jung's assistance. Continuing IV antibiotics and local wound care and elevation. 01/18/17: Continuing IV antibiotics and local wound care and elevation. Appreciate general surgery input. 01/20/17: Continue local wound care, elevation and IV antibiotics. Appreciate general surgery input and recommendations. Note there are plans for him to go to [facility] at the time of discharge. Current Visit: Yes (2) Thrombocythemia Status: Acute Assessment and plan: This is likely reactive in nature and will continue to follow. Improving with treatment of underlying cellulitis. Continuing to follow. Current Visit: Yes (3) Weight loss Status: Chronic Assessment and plan: We will attempt to provide protein shakes and nutritional supplements. Current Visit: Yes (4) Chronic obstructive pulmonary disease Status: Chronic Assessment and plan: Currently stable without any evidence of exacerbation. Current Visit: Yes Hospitalist: Subjective Interval history: Patient has no complaints today. He states his appetite is improving however his states that he has very little intake even with nutritional supplements. Exam - Constitutional Vitals: Period Temp Pulse Resp BP Sys/Fitzpatrick Pulse Ox Last 24 Hr 97.1 F-99.3 F 64-76 16-21 135-168/72-83 91-96 General appearance: no acute distress - Head Head exam: Present: normocephalic, atraumatic - Eye Eye exam: Present: EOMI Pupils: Present: MARTINA - ENT ENT exam: Present: normal exam - Neck Neck exam: Present: normal inspection - Respiratory Respiratory exam: Present: clear to auscultation bilaterally - Cardiovascular Cardiovascular exam: Present: regular rate and rhythm - GI/Abdominal GI/Abdominal exam: Present: normal bowel sounds, soft. Absent: tenderness - Extremities Exam Extremities exam: Present: other (Dressing to lower extremities. Legs are elevated.) - Neurological Exam Neurological exam: Present: alert, oriented X3, CN II-XII intact - Psychiatric Psychiatric exam: Present: normal mood, flat affect. Absent: agitated, anxious - Skin Skin exam: Present: warm, dry Results - Labs CBC & BMP: 01/19/17 05:38 01/19/17 05:38 Lab Results: I have reviewed the past 24 hour labs
[2017-01-19] MEDS: ENOXAPARIN 40 MG/0.4 ML SYRINGE SUBCUT SCH (16:29)
[2017-01-20] MEDS: SODIUM CHLORIDE 0.9% 1,000 ML IV SCH ×2 (01:52→11:33)
--- NOTE | 2017-01-20 04:43 | Event Note ---
General Surgery Progress Note Chief complaint The patient is an 86-year-old man admitted with venous stasis ulcers treated with debridement on 01/15/2017 Interval history No events over the weekend Physical exam The patient still has decreased cellulitis around his ulcers but still minimal amount present. Labs Reviewed Imaging None Assessment and plan Continue antibiotics and elevation of legs. I would be okay with transition to levaquin and clindamycin PO and discharge home when the hospitalists feel that the patient is ready medically.
--- NOTE | 2017-01-20 07:41 | Physician Query Form ---
CLICK EDIT DOCUMENT TO SELECT QUERY ANSWER --> OK --> SIGN PROVIDERS: Make your selection(s) from the choices in EACH section by typing an "x" and enter comments in the comment section. Please use your independent medical judgment in providing your response. This request does not imply that any particular answer is desired or expected. 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 (Reported also been having diarrhea by stating that the "food that he eats and the boost that he drinks" just passes through him") 18.9 5'1'' 99 lb 12.8 oz Based on the above, which following choice most accurately represents the patient's nutritional status? ( x) Malnutrition ( x) mild ( ) moderate ( ) severe (x ) Protein calorie malnutrition ( ) mild (x ) moderate ( ) severe ( ) Emaciation due to malnutrition ( ) Nutritional marasmus ( ) Cachexia ( x) Underweight ( ) No nutritional deficiency ( ) Other, please specify: ( ) Clinically unable to determine Mild Malnutrition (BMI < 18.5, % Normal Body Weight 85-95%) Moderate Malnutrition (BMI < 17, % Normal Body Weight 75-85%) Severe Malnutrition (BMI < 16, % Normal Body Weight < 75%) Source: [place] COMMENTS: PLEASE ALSO DOCUMENT RESPONSE IN PROGRESS NOTES AND/OR DISCHARGE SUMMARY Use of terms such as suspected, likely, or probable (associated with a specific diagnosis that is being evaluated, monitored, or treated as if it exists) are acceptable and can be restated in the discharge summary if not ruled out. MTDD
[2017-01-20] MEDS: ASPIRIN CHEW 81 MG TABLET PO SCH (09:00)
[2017-01-20] MEDS: PANTOPRAZOLE 40 MG TABLET PO SCH (09:00)
[2017-01-20] MEDS: CEFTAROLINE 600 MG in SODIUM CHLORIDE 0.9% 100 ML IV SCH (09:00)
--- NOTE | 2017-01-20 11:46 | Discharge Summary ---
Hospital Course - Hospital Course Hospital Course: Mr. Reeder is a 86 year old male who presents to the ER for redness and pain in bilateral lower extremities. He denies any history of blood clots or venous insufficiency but does state that he has had skin changes in his ankles for many years consistent with venous stasis disease. The patient presented to the ER complaining of right groin pain and a bulge and I was asked to see him for his inguinal hernia as well. No fevers. He has a severe thrombocytosis. White blood cell count is elevated at 15 , He is afebrile. Patient was admitted to the hospitalist service with consultation for general surgery. He underwent debridement of his lower extremity wounds. He was started on IV antibiotics during the course of the hospitalization which are now being transitioned to Levaquin and clindamycin. He is being discharged to [facility] with outpatient follow-up with Dr. Jung. Prescriptions for Levaquin and clindamycin were given as well as pain medications and Protonix. The patient has had failure to thrive and asymptomatic inguinal hernia. He suffered no complications during the course of the hospitalization. - Time spent with patient Time with patient DS: Greater than 30 minutes Diagnosis - Discharge Diagnosis (1) Thrombocytosis Status: Acute (2) Cellulitis of lower extremity Status: Acute (3) Chronic diarrhea Status: Chronic (4) Debility Status: Chronic (5) Failure to thrive Status: Chronic (6) Inguinal hernia Status: Chronic (7) Leukocytosis Status: Acute (8) Loss of appetite Status: Chronic (9) Malnutrition Status: Chronic (10) Chronic obstructive pulmonary disease Status: Chronic Specialty Discharge - Follow Up or Referrals Follow up with: Aldair Jung MD [Physician] - 02/04/17 2:00 pm Discharge Plan - Discharge Data Disposition: Disch/Xfer to Snf Condition at Discharge: Stable Activity: as per physical therapy - Discharge Medications New Clindamycin Cap [Cleocin Cap] 300 mg PO Q8HR #24 capsule Levofloxacin Tab [Levaquin Tab] 500 mg PO DAILY #7 tablet Pantoprazole Tab [Protonix Tab] 40 mg PO DAILY #30 tablet Acetaminophen Tab [Tylenol Tab] 325 mg PO Q4H PRN tablet PRN Reason: fever, headache/body aches HYDROcodone/ACETAMIN 7.5-325 [[place] 7.5-325] 1 tablet PO Q4H PRN #30 tablet PRN Reason: Pain Moderate (4-7) Continue Aspirin 1 tablet PO DAILY - Follow Up or Referral Follow Up: Aldair Jung MD [Physician] - 02/04/17 2:00 pm - Forms/Instructions Instructions: Cellulitis (DC), Acute Wound Care (DC) Exam - Constitutional Vitals: Period Temp Pulse Resp BP Sys/Fitzpatrick Pulse Ox Last 24 Hr 97.8 F-98.8 F 64-84 18-20 141-171/73-82 90-96 Discharge Results Procedures and tests throughout hospitalization: Pending Orders 01/15/17 ANISHA Titer, S (IgA) Routine 01/15/17 04:00 Endomysial Antibodies IgA Routine Gliadin(Deamidated) Ab,IgA,S Routine Tissue Transglutaminase IgA/G Routine DS: Provider Date of admission: 01/14/17 15:28 Primary care physician: . No PCP Attending physician on admission: Micheline Padgett MD Consults: 01/14/17 16:01 Consult to Physician [CONS] Routine Comment: bilateral LE wounds and right inguinal hernia Consulting Provider: Aldair Jung 01/14/17 16:03 Consult to Case Mgmt/Social Srvs [CONS] Routine Reason for Case Mgmt/Social Srvs: Rehab Consult to Occupational Therapy [CONS] Routine Reason for Occupational Therapy: Weakness Consult to Physical Therapy [CONS] Routine Reason for Physical Therapy: Weakness 01/14/17 16:04 Consult to Pharmacy [CONS] Routine Reason for Pharmacy Consult: Dose/Manage Vancomycin 01/14/17 16:22 Consult to Physician [CONS] Routine Comment: Elevated plt Consulting Provider: John Larson Person Notified: BERNARDO Date Notified: 01/15/17 Time Notified: 09:51 01/14/17 16:24 Consult to Wound Care - [place] [CONS] Routine Reason for Wound Care: Wound Care Management 01/14/17 20:08 Consult to Dietitian [CONS] Routine Reason for Dietitian: Other 01/15/17 07:13 Consult to Anesthesiology [CONS] Routine Consulting Provider: Reason for Anesthesiology: Pre-op Clearance 01/15/17 13:56 Consult to Wound Care - [place] [CONS] Routine Reason for Wound Care: Wound Care Management Consult Comment: venous stasis ulcers Discharging clinician: Edgar Oates MD Expected date of discharge: 01/20/17
[2017-01-20 11:47] VITALS: BP 133/72
[2017-01-21 13:16] LABS: Tissue Transglutaminase IgA Ab < 1.2 U/mL; Tissue Transglutaminase IgG Ab 1.4 U/mL
[2017-01-21 13:26] LABS: Endomysial Antibodies IgA Negative (Negative)
== END 2017-01-20 16:55 | DRG 264 ==
LOC: N.ED 12:19 → N.EDINP 15:28 → SUATTDRO 15:28 → N.5E 17:49
PROVIDERS: ADMIT Internal Medicine; ATTEND Family Medicine